=== PATIENT | male | born 1975 | race Caucasian/White ===

== ENCOUNTER 2023-03-05 07:35 | Emergency (ER) | payer OTHER ==
[~2023-03-05] VITALS: Ht 180.3 cm; Wt 116.6 kg
[2023-03-05] MEDS ORDERED: COZAAR100 MG PO (08:16)
[2023-03-05] MEDS ORDERED: CALAN SR120 MG PO (08:17)
== END 2023-03-05 13:03 | disposition home or self-care (01) ==
LOC: ER 07:35
DX: G51.0 Bell's palsy (principal); I10 Essential (primary) hypertension